=== PATIENT | male | born 1955 | race Caucasian/White ===

== ENCOUNTER 2017-11-06 12:15 | Outpatient (RCR) | payer OTHER | END 2017-11-14 09:39 | disposition home or self-care (01) | LOC: SPU 12:15 | PROVIDERS: ATTEND Internal Medicine | DX: Z76.89 Persons encountering health services in other specified circumstances (principal) ==

== ENCOUNTER → 2017-11-06 | Outpatient (CLI) | payer OTHER ==
[2017-11-06 12:35] VITALS: BP 148/90
[2017-11-06 12:36] LABS: PLATELET COUNT, AUTOMATED 227 K/uL (150-450)
== END ==
LOC: LAB 11:55
PROVIDERS: ATTEND Internal Medicine
DX: D75.1 Secondary polycythemia (principal)
CPT/HCPCS: 36415; 85025

== ENCOUNTER 2018-05-19 23:41 | Emergency (ER) | payer OTHER ==
--- NOTE | 2018-05-20 00:13 | ER Report ---
History and Physical Time Seen By MD: 00:13 Hx. of Stated Complaint: chest pain starting around 4pm today, pt thought it was indigestion. pain 6/10 states it radiates to both shoulders. HPI/ROS CHIEF COMPLAINT: Chest pain HISTORY OF PRESENT ILLNESS: This is a 63-year-old male. He started having chest pain about 4 PM today. Thought it was indigestion. Pain rated 6 on a 1-10 scale. Central substernal area radiating upwards toward both shoulders. Worsens with movement and with taking deep breaths. Dull ache that becomes sharp with deep breaths. Denies fevers or chills. Has a history of irregular heartbeat in the past, cardiac workup including cardiac catheterization last December showed no signs of coronary artery disease at the time. He does have COPD and uses inhalers today without any improvement. Nose has a little bit of a chronic cough but it is no worse than usual. No nausea or vomiting. Normal bowel and bladder function. There is a family history of blood clots, his son in particularly. Allergies: Coded Allergies: No Known Drug Allergies (Unverified , 05/19/18) Home Meds Active Scripts Prednisone (PREDNISONE) 20 Mg Tablet, 60 MG PO QDAY, #12 TAB 0 Refills Prov:AARON LUNDY MD 05/20/18 Oxycodone Hcl/Acetaminophen (PERCOCET 5-325 MG TABLET) 1 Each Tablet, 1 EACH PO Q4H PRN for PAIN, #12 TAB 0 Refills Prov:AARON LUNDY MD 05/20/18 Reported Medications Furosemide (FUROSEMIDE) 40 Mg Tablet, 1 TAB PO DAILY, TAB 05/20/18 Metoprolol Tartrate (METOPROLOL TARTRATE) 25 Mg Tablet, 25 MG PO BID, TAB 05/20/18 Hydroxychloroquine Sulfate (HYDROXYCHLOROQUINE SULFATE) 200 Mg Tablet, 200 MG PO QDAY 05/20/18 Sulfasalazine (SULFASALAZINE) 500 Mg Tablet, 500 MG PO 05/20/18 Aspirin (ASPIR 81) 81 Mg Tablet.dr, 81 MG PO QDAY, TAB 05/20/18 Valsartan/Hydrochlorothiazide (VALSARTAN-HCTZ 80-12.5 MG TAB) 1 Each Tablet, 1 EACH PO 05/20/18 Simvastatin (SIMVASTATIN) 20 Mg Tablet, 10 MG PO HS, TAB 05/20/18 Glyburide (GLYBURIDE) 2.5 Mg Tab, 2.5 MG PO, TAB 05/20/18 Escitalopram Oxalate (LEXAPRO) 20 Mg Tablet, 20 MG PO QDAY, TAB 05/20/18 Alprazolam (XANAX) 0.5 Mg Tablet, 0.5 TAB PO TID, TAB 05/20/18 Reviewed Nurses Notes: Yes Constitutional Vital Sign - Last 24 Hours 05/19/18 05/19/18 05/20/18 05/20/18 23:45 23:45 00:00 00:11 Pulse 91 84 Resp 20 B/P (MAP) 107/68 (81) 107/68 102/67 (79) Pulse Ox 90 O2 Delivery Room Air 05/20/18 05/20/18 05/20/18 05/20/18 00:30 00:45 01:00 01:30 Pulse 91 91 Resp 13 16 B/P (MAP) 98/58 (71) 86/67 (73) 94/58 (70) 108/70 (83) Pulse Ox 89 85 05/20/18 05/20/18 05/20/18 05/20/18 02:00 02:30 03:30 04:18 Pulse 93 97 101 Resp 58 19 18 B/P (MAP) 114/69 (84) 111/70 (84) Pulse Ox 89 88 05/20/18 05/20/18 04:30 04:57 Pulse 107 Resp 24 B/P (MAP) 101/55 (70) Physical Exam General Appearance: The patient is alert. Acute distress due to pain. Eyes: Pupils are equal, round. No pallor, injection or icterus. ENT: Mucous membranes are moist. Normal oral mucosa. Posterior oropharynx is normal. Neck: Supple and non tender. Respiratory: Lungs are clear to auscultation. Cardiovascular: Regular rate and rhythm. No murmurs, gallops or rubs. Normal capillary refill. Trace edema. Gastrointestinal: Abdomen is soft and non tender. Nondistended. Normal active bowel sounds. Neurological: Alert and oriented x3. Skin: Warm and dry. No rashes. Musculoskeletal: No tenderness in palpation of the chest wall or back. DIFFERENTIAL DIAGNOSIS: After history and physical exam, differential diagnosis was considered for chest pain including but not limited to myocardial ischemia, pericarditis pulmonary embolus, chest wall pain, pleural inflammation and pulmonary infectious causes. Medical Decision Making Data Points Result Diagram: 05/20/18 0017 05/20/18 0017 Laboratory Hematology Test 05/20/18 00:17 05/20/18 01:03 05/20/18 04:12 Red Blood Count 5.56 M/uL (4.00-5.60) Mean Corpuscular Volume 89.6 fL (80.0-96.0) Mean Corpuscular Hemoglobin 31.0 pg (26.0-33.0) Mean Corpuscular Hemoglobin Concent 34.6 g/dL (32.0-36.0) Red Cell Distribution Width 14.4 % (11.5-14.5) Mean Platelet Volume 6.9 fL (7.2-11.1) Neutrophils (%) (Auto) 64.6 % (39.4-72.5) Lymphocytes (%) (Auto) 25.7 % (17.6-49.6) Monocytes (%) (Auto) 7.4 % (4.1-12.4) Eosinophils (%) (Auto) 1.6 % (0.4-6.7) Basophils (%) (Auto) 0.7 % (0.3-1.4) Nucleated RBC Relative Count (auto) 0.1 /100WBC Neutrophils # (Auto) 6.8 K/uL (2.0-7.4) Lymphocytes # (Auto) 2.7 K/uL (1.3-3.6) Monocytes # (Auto) 0.8 K/uL (0.3-1.0) Eosinophils # (Auto) 0.2 K/uL (0.0-0.5) Basophils # (Auto) 0.1 K/uL (0.0-0.1) Nucleated RBC Absolute Count (auto) 0.01 K/uL Sodium Level 131 mmol/L (137-145) Potassium Level 3.3 mmol/L (3.5-5.0) Chloride Level 95 mmol/L (98-107) Carbon Dioxide Level 20 mmol/L (22-30) Blood Urea Nitrogen 13 mg/dl (9-21) Creatinine 0.90 mg/dl (0.66-1.25) Glomerular Filtration Rate Calc > 60.0 Random Glucose 234 mg/dl (75-110) Calcium Level 8.5 mg/dl (8.4-10.2) Total Bilirubin 1.0 mg/dl (0.2-1.3) Aspartate Amino Transf (AST/SGOT) 25 U/L (0-35) Alanine Aminotransferase (ALT/SGPT) 45 U/L (0-56) Alkaline Phosphatase 81 U/L (0-126) Total Protein 7.5 g/dl (6.3-8.2) Albumin 4.2 g/dl (3.5-5.0) D-Dimer Quantitative (PE/DVT) 1.86 ug/ml (0-0.50) Troponin I < 0.012 ng/ml Chemistry Test 05/20/18 00:17 05/20/18 01:03 05/20/18 04:12 White Blood Count 10.5 k/uL (4.5-11.0) Red Blood Count 5.56 M/uL (4.00-5.60) Hemoglobin 17.2 g/dL (14.0-18.0) Hematocrit 49.8 % (42.0-52.0) Mean Corpuscular Volume 89.6 fL (80.0-96.0) Mean Corpuscular Hemoglobin 31.0 pg (26.0-33.0) Mean Corpuscular Hemoglobin Concent 34.6 g/dL (32.0-36.0) Red Cell Distribution Width 14.4 % (11.5-14.5) Platelet Count 218 K/uL (150-450) Mean Platelet Volume 6.9 fL (7.2-11.1) Neutrophils (%) (Auto) 64.6 % (39.4-72.5) Lymphocytes (%) (Auto) 25.7 % (17.6-49.6) Monocytes (%) (Auto) 7.4 % (4.1-12.4) Eosinophils (%) (Auto) 1.6 % (0.4-6.7) Basophils (%) (Auto) 0.7 % (0.3-1.4) Nucleated RBC Relative Count (auto) 0.1 /100WBC Neutrophils # (Auto) 6.8 K/uL (2.0-7.4) Lymphocytes # (Auto) 2.7 K/uL (1.3-3.6) Monocytes # (Auto) 0.8 K/uL (0.3-1.0) Eosinophils # (Auto) 0.2 K/uL (0.0-0.5) Basophils # (Auto) 0.1 K/uL (0.0-0.1) Nucleated RBC Absolute Count (auto) 0.01 K/uL Glomerular Filtration Rate Calc > 60.0 Calcium Level 8.5 mg/dl (8.4-10.2) Total Bilirubin 1.0 mg/dl (0.2-1.3) Aspartate Amino Transf (AST/SGOT) 25 U/L (0-35) Alanine Aminotransferase (ALT/SGPT) 45 U/L (0-56) Alkaline Phosphatase 81 U/L (0-126) Total Protein 7.5 g/dl (6.3-8.2) Albumin 4.2 g/dl (3.5-5.0) D-Dimer Quantitative (PE/DVT) 1.86 ug/ml (0-0.50) Troponin I < 0.012 ng/ml Coagulation Test 05/20/18 01:03 D-Dimer Quantitative (PE/DVT) 1.86 ug/ml EKG/Imaging EKG Interpretation 12 lead EKG: Rhythm: normal sinus rhythm, rate 89 [place]: Left axis QRS: normal ST segments: No ST elevation or depression noted Imaging CHEST PA LAT COMPARISONS: None. ADDITIONAL PERTINENT HISTORY: Chest pain for one day. FINDINGS: Cardiomediastinal silhouette: Negative. Pulmonary vasculature: Negative. Lung guerrero: Calcified granulomata within both hemithoraces. Mild scarring versus atelectatic change at the right lung base. Pleural spaces: Negative. Osseous structures: Negative. Surrounding soft tissues: Negative. IMPRESSION: 1. Calcified granulomata bilaterally. 2. Mild scarring versus atelectatic change at the right lung base. 3. No other acute process. Report Dictated By: Jeyson Barrios MD at 05/20/2018 12:[address] CTA CHEST W & W/O CON COMPARISONS: 2 view chest dated same day. ADDITIONAL PERTINENT HISTORY: Chest pain and shortness of breath TECHNIQUE: Multiple axial images are obtained from the lung apices through the upper abdomen during the IV administration of contrast material. 2-D and 3-D re formatted images were obtained off the axial source data. One of the following dose optimization techniques was utilized in the performance of this exam: Automated exposure control; adjustment of the mA and/or kV according to the patient's size; or use of an iterative reconstruction technique. Specific details can be referenced in the facility's radiology CT exam operational policy. CONTRAST: 75mL of Isovue-370 FINDINGS: Lung parenchyma: Mild bibasilar regions of atelectatic change. 1.1 cm calcified nodule involving the posterior segment of the right upper lobe could represent an underlying calcified granuloma versus a small hamartoma. Pleural spaces: Negative. Heart, mediastinum and ophelia: Negative. Cardiopulmonary vasculature: Pulmonary arterial structures are well opacified with contrast material and demonstrate no evidence of underlying pulmonary emboli. Mild atherosclerotic disease of the thoracic aortic arch and descending thoracic aorta. Central airways: Negative Thyroid, supra- clavicular, axillary regions: Negative. Surrounding soft tissues: Negative. Upper abdominal structures: Negative. Osseous structures: Minimal spondylitic change involving the thoracic spine. No acute appearing bony abnormalities. IMPRESSION: 1. Mild bibasilar atelectatic change. 2. No other acute intrathoracic process. Specifically no evidence of pulmonary emboli. Report Dictated By: Jeyson Barrios MD at 05/20/2018 3:15 AM ED Course/Re-evaluation Clinical Indication for ER IV: IV Access ED Course Initially began chest pain protocol, no real improvement with IV morphine. X-ray was negative. Initial troponin negative. No signs of ischemia on EKG. GI cocktail given without improvement. CT angiogram negative for pulmonary and was more other acute abnormality. Gave the patient a dose of Toradol which did help the pain a little bit. Repeat troponin negative. Appears to be pleuritic chest pain. We'll start prednisone and give Percocet for pain while the anti- inflammatories kicking in. Decision to Disposition Date: May 20, 2018 Decision to Disposition Time: 04:49 Depart Departure Latest Vital Signs Vital Signs Date Time Temp Pulse Resp B/P (MAP) Pulse Ox O2 Delivery O2 Flow Rate FiO2 05/20/18 04:57 101/55 (70) 05/20/18 04:30 107 24 05/20/18 02:30 88 05/19/18 23:45 Room Air Impression: Primary Impression: Pleuritic chest pain Condition: Improved Disposition: HOME OR SELF-CARE New Scripts Prednisone (PREDNISONE) 20 Mg Tablet 60 MG PO QDAY, #12 TAB 0 Refills Prov: AARON LUNDY MD 05/20/18 Oxycodone Hcl/Acetaminophen (PERCOCET 5-325 MG TABLET) 1 Each Tablet 1 EACH PO Q4H PRN for PAIN, #12 TAB 0 Refills Prov: AARON LUNDY MD 05/20/18 Patient Instructions: Pleurisy (ED) Additional Instructions: Your workup tonight was negative for blood clots in the lungs, pulmonary inf ections, or heart attack. We think you pain is due to pleuritic inflammation of the lungs causing pain. Take Prednisone 20mg tablets, 3 tablets once a day for 4 more days. Take Percocet 5/325, one every 4 hours as needed for pain. AARON LUNDY MD May 20, 2018 00:13
[2018-05-20] MEDS ORDERED: NS(*) 0.9% 1000 ML BAG 1,000 ML IV ONE (00:19)
[2018-05-20] MEDS ORDERED: ASPIRIN 81 MG CHEW CHEW ONE (00:20)
[2018-05-20 00:49] LABS: PLATELET COUNT, AUTOMATED 218 K/uL (150-450)
--- NOTE | 2018-05-20 00:55 | RADIOLOGY IMAGING REPORT ---
[place]AC[place] [facility] [place] NAME: Branden Ureña : 1955 MR: [id number] V: [id number] EXAM DATE: ORDERING PHYSICIAN: AARON LUNDY TECHNOLOGIST: Location[place] [facility] [place]: Branden Ureña : 1955 Visit/Account:[id number] Date of Sevice: 05/20/2018 CHEST PA LAT COMPARISONS: None. ADDITIONAL PERTINENT HISTORY: Chest pain for one day. FINDINGS: Cardiomediastinal silhouette: Negative. Pulmonary vasculature: Negative. Lung guerrero: Calcified granulomata within both hemithoraces. Mild scarring versus atelectatic change at the right lung base. Pleural spaces: Negative. Osseous structures: Negative. Surrounding soft tissues: Negative. IMPRESSION: 1. Calcified granulomata bilaterally. 2. Mild scarring versus atelectatic change at the right lung base. 3. No other acute process. Report Dictated By: Jeyson Barrios MD at 05/20/2018 12:49 AM Report E-Signed By: Jeyson Barrios MD at 05/20/2018 12:50 AM WSN:[id number]
[2018-05-20] MEDS ORDERED: ALPR-429 PO (00:56)
[2018-05-20] MEDS ORDERED: ESCI20TA38 PO (00:56)
[2018-05-20] MEDS ORDERED: HYDR200T42 PO (00:59)
[2018-05-20] MEDS ORDERED: VALS1TAB2 PO (00:59)
[2018-05-20] MEDS ORDERED: GLY25 PO (00:59)
[2018-05-20] MEDS ORDERED: ASPI-1471 PO (00:59)
[2018-05-20] MEDS ORDERED: SIMV-49 PO (00:59)
[2018-05-20] MEDS ORDERED: METO25TA93 PO (00:59)
[2018-05-20] MEDS ORDERED: SULF500T48 PO (00:59)
[2018-05-20] MEDS ORDERED: FURO-47 PO (01:09)
[2018-05-20] MEDS ORDERED: MORPHINE 4 MG/ML SDV IVP ONE (01:15)
[2018-05-20] MEDS ORDERED: NS(*) 0.9% 10 ML VIAL 0 ML ONE ×2 (02:38→02:44)
[2018-05-20] MEDS ORDERED: IOPAMIDOL 76% 150 ML INFUS BTL 150 ML ONE (02:38)
[2018-05-20] MEDS ORDERED: NS(*) 0.9% 50 ML BAG 50 ML ONE (02:41)
[2018-05-20] MEDS ORDERED: MAG HYD/AL HYD/SIMETH 30ML UDC PO ONE (03:15)
[2018-05-20] MEDS ORDERED: ATRO/SCOPOL/HYOSCY/PB 5 ML ELX PO ONE (03:15)
[2018-05-20] MEDS ORDERED: LIDOCAINE 2% VISC SLN 15ML UDC PO ONE (03:15)
--- NOTE | 2018-05-20 03:26 | RADIOLOGY IMAGING REPORT ---
FACILITY: [facility] - [place] PATIENT NAME: Branden Ureña : 1955 MR: [id number] V: [id number] EXAM DATE: ORDERING PHYSICIAN: AARON LUNDY TECHNOLOGIST: Location: [facility] - [place] Patient: Branden Ureña : 1955 Visit/Account:[id number] Date of Sevice: 05/20/2018 CT CTA CHEST W & W/O CON COMPARISONS: 2 view chest dated same day. ADDITIONAL PERTINENT HISTORY: Chest pain and shortness of breath TECHNIQUE: Multiple axial images are obtained from the lung apices through the upper abdomen during t he IV administration of contrast material. 2-D and 3-D reformatted images were obtained off the axial source data. One of the following dose optimization techniques was utilized in the performance of t his exam: Automated exposure control; adjustment of the mA and/or kV according to the patient's size; or use of an iterative reconstruction technique. Specific details can be referenced in the [facility]'s radiology CT exam operational policy. CONTRAST: 75mL of Isovue-370 FINDINGS: Lung parenchyma: Mild bibasilar regions of atelectatic change. 1.1 cm calcified nodule involving the posterior segment of the right upper lobe could represent an underlying calcified granuloma versus a small hamartoma. Pleural spaces: Negative. Heart, mediastinum and ophelia: Negative. Cardiopulmonary vasculature: Pulmonary arterial structures are well opacified with contrast material and demonstrate no evidence of underlying pulmonary emboli. Mild atherosclerotic disease of the thora cic aortic arch and descending thoracic aorta. Central airways: Negative Thyroid, supra- clavicular, axillary regions: Negative. Surrounding soft tissues: Negative. Upper abdominal structures: Negative. Osseous structures: Minimal spondylitic change involving the thoracic spine. No acute appearing bony abnormalities. IMPRESSION: 1. Mild bibasilar atelectatic change. 2. No other acute intrathoracic process. Specifically no evidence of pulmonary emboli. Report Dictated By: Jeyson Barrios MD at 05/20/2018 3:15 AM Report E-Signed By: Jeyson Barrios MD at 05/20/2018 3:21 AM WSN:[id number]
[2018-05-20] MEDS ORDERED: KETOROLAC 30 MG/ML VIAL IVP ONE (04:05)
--- NOTE | 2018-05-20 04:44 | EKG ---
FACILITY: [facility] PATIENT NAME: FELXI MENSAH : [id number] MR: [id number] V: [id number] EXAM DATE: ORDERING PHYSICIAN: AARON LUNDY TECHNOLOGIST: MARGARITO Pritchard Reason : Blood Pressure : / mmHG Vent. Rate : 089 BPM Atrial Rate : 089 BPM P-R Int : 194 ms QRS Dur : 114 ms QT Int : 376 ms P-R-T Axes : 062 -54 004 degrees QTc Int : 457 ms Normal sinus rhythm Left axis deviation Inferior infarct , age undetermined Abnormal ECG No previous ECGs available Confirmed by HENOK COVARRUBIAS ([id number]) on 05/20/2018 6:50:25 AM Referred By: Confirmed By:HENOK COVARRUBIAS
[2018-05-20] MEDS ORDERED: predniSONE 20 MG TAB PO ONE (04:45)
[2018-05-20] MEDS ORDERED: oxyCODONE/ACETAMIN 5/325MG TH 2 TAB/BOTTLE PO ONE (04:45)
[2018-05-20] MEDS ORDERED: OXYC-865 PO (04:51)
[2018-05-20] MEDS ORDERED: PRED20TA6 PO (04:51)
[2018-05-20 04:57] VITALS: BP 101/55
== END 2018-05-20 05:08 | disposition home or self-care (01) ==
LOC: ER 05-20 00:27
DX: R07.81 Pleurodynia (principal); J44.9 Chronic obstructive pulmonary disease, unspecified; Z79.899 Other long term (current) drug therapy
CPT/HCPCS: 36415; 71046; 71275; 84484; 85025; 85379; 93005; 96361; 96374; 99284; J1885; J2270; J7030; J7512; Q9967; 82040; 82247; 82310; 82374; 82435; 82565; 82947; 84075; 84132; 84155; 84295; 84450; 84460; 84520